=== PATIENT | male | born 1980 | race Caucasian/White ===

== ENCOUNTER 2017-02-08 16:03 | Emergency (ER) | payer MEDICAID ==
[2017-02-08 16:13] VITALS: BP 101/58; PULSE 53; RESP 16; TEMP 97.7; O2SAT 95
--- NOTE | 2017-02-08 16:43 | EDPHY ---
H & P Time Seen by Provider: 02/08/17 16:32 HPI/ROS: CHIEF COMPLAINT: Foot pain HISTORY OF PRESENT ILLNESS: this is a 36-year-old male presenting to the emergency department complaining of left pinky toe pain onset yesterday. patient states he was walking with his dog yesterday twisted his foot started having pain at his left pinky with bruising. reports increased pain with weight-bearing, but is able to ambulate without difficulty. denies any other injury REVIEW OF SYSTEMS: Constitutional: No fever, no chills. Eyes: No discharge. no blurred vision Cardiovascular: No chest pain, no palpitations. Respiratory: No cough, no shortness of breath. Gastrointestinal: No abdominal pain, no vomiting. Musculoskeletal: No back pain. left foot pain Skin: No rashes. Neurological: No headache. Smoking Status: Never smoked Physical Exam: General Appearance: Alert and no distress. Eyes: Pupils equal and round no injection. Respiratory: Chest is nontender, lungs are clear to auscultation. Cardiac: regular rate and rhythm Gastrointestinal: Abdomen is soft and nontender, no masses Musculoskeletal: Neck is supple and nontender. Extremities: Left foot metatarsal tenderness on palpation, no obvious deformity ecchymosis noted. full range of motion positive CMS intact Skin: No rashes or lesions. Constitutional: Initial Vital Signs Temperature (C) 36.5 C 02/08/17 16:10 Heart Rate 53 L 02/08/17 16:10 Respiratory Rate 16 02/08/17 16:10 Blood Pressure 101/58 L 02/08/17 16:10 O2 Sat (%) 95 02/08/17 16:10 O2 Delivery Mode Room Air Allergies/Adverse Reactions: Sulfa (Sulfonamide Antibiotics) Allergy (Verified 02/08/17 16:09) Home Medications: Medication Instructions Recorded NK [No Known Home Meds] 02/08/17 Medical Decision Making - Diagnostics Imaging Results: Imaging Impressions Foot X-Ray 02/08/17 16:14 Impression: Negative left foot radiographs. ED Course/Re-evaluation: discussed the plan of care: x-ray of left foot no acute fracture seen Differential Diagnosis: other differential diagnosis considered but not limited to toe fracture, dislocation, metatarsal fracture Departure - Departure Disposition: Home, Routine, Self-Care Clinical Impression: Toe sprain Qualifiers: Encounter type: initial encounter Qualified Code(s): S93.509A - Unspecified sprain of unspecified toe(s), initial encounter Condition: Good Instructions: Swollen Joint (ED) Additional Instructions: 1. decreased prolonged pressure on left foot 2. ice 15 minutes several times a day as needed for swelling 3. ibuprofen as needed for pain and inflammation Referrals: NONE *PRIMARY CARE P,. [Primary Care Provider] - As per Instructions [facility],. [Clinic] - As per Instructions
== END 2017-02-08 16:55 | disposition home or self-care (01) ==
DX: S93.505A Unspecified sprain of left lesser toe(s), initial encounter (principal); X50.9XXA Other and unspecified overexertion or strenuous movements or postures, initial encounter; Y99.8 Other external cause status; Y93.K1 Activity, walking an animal

== ENCOUNTER 2017-08-02 16:41 | Emergency (ER) | payer MEDICAID ==
[2017-08-02] MEDS ORDERED: LORazepam 2 MG/ML INJ ONE (16:58)
[2017-08-02] MEDS ORDERED: LORazepam 2 MG/ML INJ IVP ONE (17:00)
--- NOTE | 2017-08-02 17:03 | EDPHY ---
H & P - Medical/Surgical History Hx Asthma: No Hx Chronic Respiratory Disease: No Hx Diabetes: No Hx Cardiac Disease: No Hx Renal Disease: No Hx Cirrhosis: No Hx Alcoholism: No Hx HIV/AIDS: No Hx Splenectomy or Spleen Trauma: No Other PMH: denies - Social History Smoking Status: Never smoked HPI/ROS: Chief complaint: "I took mushrooms and now everything is coated in fear." History of present illness: This is a 37-year-old male who presents to the emergency department stating he took mushrooms and now feels like everything " is coated in fear." He has a hard time describing how he is feeling. He states he has taken mushrooms multiple times in the past and has always had a positive reaction. He describes this is very negative. He is wondering if his friend who given the mushrooms gave him something different. He does not believe he has other drugs or alcohol on board. He denies other associated signs or symptoms including no illness or injury. Review of systems: A 10 point review of systems was obtained and other than described above was negative (Lenny Velasquez) - Physical Exam Exam: General Appearance: Alert, nontoxic. Eyes: Pupils equal and round no pallor or injection. ENT, Mouth: Mucous membranes moist. Respiratory: There are no retractions, lungs are clear to auscultation. Cardiovascular: Regular rate and rhythm. Gastrointestinal: Abdomen is soft and non tender, no masses, bowel sounds normal. Neurological: Alert. Cranial nerves 2-12 grossly intact. Strength and sensation intact and symmetrical. Skin: Warm and dry, no rashes. Musculoskeletal: Neck is supple non tender. Extremities are symmetrical, full range of motion. Psychiatric: Patient is alert. The more speak with him the more he appears to be very paranoid. (Lenny Velasquez) Constitutional: Initial Vital Signs Temperature (C) 36.9 C 08/02/17 17:01 Heart Rate 67 08/02/17 17:01 Respiratory Rate 18 08/02/17 17:01 Blood Pressure 142/96 H 08/02/17 17:01 O2 Sat (%) 99 08/02/17 17:01 O2 Delivery Mode Room Air Allergies/Adverse Reactions: Sulfa (Sulfonamide Antibiotics) Allergy (Verified 02/08/17 16:09) Home Medications: Medication Instructions Recorded NK [No Known Home Meds] 02/08/17 Medical Decision Making - Diagnostics EKG Interpretation: 12 lead EKG is interpreted in Trace master View by emergency department physician. (Maggie Burgess) ED Course/Re-evaluation: The patient was evaluated and managed by the physician car rental sales assistant. I have reviewed this chart and I agree with the findings and plan of care as documented , as indicated by my signature. I am the secondary supervising physician. ( Maggie Burgess) Differential Diagnosis: Patient seen under the supervision of my secondary supervising physician Dr. Maggie Burgess. Patient presents to the emergency department having a bad reaction to hallucinogenic mushrooms. He is nontoxic. Physical exam is benign. Vital signs are stable. Blood screen, toxicology screen EKG largely unremarkable. I believe this is a bad reaction to hallucinogenic mushrooms. I believe he is safe for discharge home. He is discharged with his mother and a friend to observe him. Return precautions are given. (Lenny Velasquez) - Data Points Laboratory Results: Laboratory Results 08/02/17 16:50 08/02/17 16:50 08/02/17 08/02/17 08/02/17 16:50 16:50 16:50 WBC 10.21 10^3/uL H 10^3/uL (3.80-9.50) RBC 5.18 10^6/uL 10^6/uL (4.40-6.38) Hgb 16.7 g/dL g/dL (13.7-17.5) Hct 46.6 % % (40.0-51.0) MCV 90.0 fL fL (81.5-99.8) MCH 32.2 pg pg (27.9-34.1) MCHC 35.8 g/dL g/dL (32.4-36.7) RDW 12.1 % % (11.5-15.2) Plt Count 197 10^3/uL 10^3/uL (150-400) MPV 11.7 fL fL (8.7-11.7) Neut % (Auto) 75.3 % H % (39.3-74.2) Lymph % (Auto) 13.1 % L % (15.0-45.0) [place] % (Auto) 8.8 % % (4.5-13.0) Eos % (Auto) 1.6 % % (0.6-7.6) Baso % (Auto) 0.4 % % (0.3-1.7) Nucleat RBC Rel Count 0.0 % % (0.0-0.2) Absolute Neuts (auto) 7.69 10^3/uL H 10^3/uL (1.70-6.50) Absolute Lymphs (auto) 1.34 10^3/uL 10^3/uL (1.00-3.00) Absolute Monos (auto) 0.90 10^3/uL H 10^3/uL (0.30-0.80) Absolute Eos (auto) 0.16 10^3/uL 10^3/uL (0.03-0.40) Absolute Basos (auto) 0.04 10^3/uL 10^3/uL (0.02-0.10) Absolute Nucleated RBC 0.00 10^3/uL 10^3/uL (0-0.01) Immature Gran % 0.8 % % (0.0-1.1) Immature Gran # 0.08 10^3/uL 10^3/uL (0.00-0.10) Sodium 140 mEq/L mEq/L (134-144) Potassium 4.3 mEq/L mEq/L (3.5-5.2) Chloride 100 mEq/L mEq/L (97-110) Carbon Dioxide 26 mEq/l mEq/l (22-31) Anion Gap 14 mEq/L mEq/L (8-16) BUN 20 mg/dL mg/dL (7-23) Creatinine 1.1 mg/dL mg/dL (0.7-1.3) Estimated GFR > 60 Glucose 100 mg/dL mg/dL (70-100) Calcium 9.9 mg/dL mg/dL (8.5-10.4) Urine Opiates Screen NEGATIVE (NEGATIVE) Urine Barbiturates NEGATIVE (NEGATIVE) Ur Phencyclidine Scrn NEGATIVE (NEGATIVE) Ur Amphetamine Screen NEGATIVE (NEGATIVE) U Benzodiazepines Scrn NEGATIVE (NEGATIVE) Urine Cocaine Screen NEGATIVE (NEGATIVE) U Marijuana (THC) Screen NEGATIVE (NEGATIVE) Ethyl Alcohol < 10 mg/dL mg/dL (0-10) Medications Given: Discontinued Medications Lorazepam (Ativan Injection) 0.5 mg IVP EDNOW ONE Stop: 08/02/17 17:01 Last Admin: 08/02/17 17:01 Dose: 0.5 mg Departure - Departure Disposition: Home, Routine, Self-Care Clinical Impression: Polysubstance abuse Condition: Good Instructions: Polysubstance Abuse (ED) Additional Instructions: Follow-up with a primary care doctor for recheck Discontinue the use of illicit drugs including mushrooms If symptoms worsen or new symptoms develop return to the emergency room for recheck Referrals: Patient,NotPresent [Unknown] - As per Instructions [facility],. [Clinic] - As per Instructions
[2017-08-02 17:08] LABS: % IMMATURE GRANULYOCYTES 0.8 % (0.0-1.1); ABSOLUTE IMMATURE GRANULOCYTES 0.08 10^3/uL (0.00-0.10); ADD DIFF? NO; ADD MORPH? NO; ADD SCAN? NO; ATYPICAL LYMPHOCYTE FLAG 0 (0-99); FRAGMENT RBC FLAG 0 (0-99); HEMATOCRIT 46.6 % (40.0-51.0); HEMOGLOBIN 16.7 g/dL (13.7-17.5); LEFT SHIFT FLG 0 (0-99); LIPEMIA HEMOLYSIS FLAG 90 (0-99); MEAN CELL HEMOGLOBIN 32.2 pg (27.9-34.1); MEAN CELL HEMOGLOBIN CONCENTR. 35.8 g/dL (32.4-36.7); MEAN PLATELET VOLUME 11.7 fL (8.7-11.7); PLATELET CLUMPS FLAG 0 (0-99); PLATELET COUNT 197 10^3/uL (150-400); RED BLOOD CELL COUNT 5.18 10^6/uL (4.40-6.38); RED CELL DISTRIBUTION WIDTH 12.1 % (11.5-15.2)
[2017-08-02 17:20] VITALS: TEMP 98.4
[2017-08-02 17:23] LABS: ANION GAP 14 mEq/L (8-16); CALCIUM 9.9 mg/dL (8.5-10.4); CARBON DIOXIDE 26 mEq/l (22-31); CHLORIDE 100 mEq/L (97-110); CREATININE 1.1 mg/dL (0.7-1.3); ETHANOL SERUM < 10 mg/dL (0-10); GLOMERULAR FILTRATION RATE > 60; GLUCOSE 100 mg/dL (70-100); POTASSIUM 4.3 mEq/L (3.5-5.2); SODIUM 140 mEq/L (134-144)
--- NOTE | 2017-08-02 17:28 | CPEKG ---
Heart Rate: 78 RR Interval: 769 P-R Interval: 168 QRSD Interval: 94 QT Interval: 372 QTC Interval: 424 P [place]: 76 QRS [place]: 131 T Wave [place]: 53 EKG Severity - ABNORMAL ECG - EKG Impression: SINUS RHYTHM EKG Impression: PROBABLE LEFT ATRIAL ABNORMALITY EKG Impression: CONSIDER RIGHT VENTRICULAR HYPERTROPHY EKG Impression: CONSIDER LEFT VENTRICULAR HYPERTROPHY EKG Impression: ST ELEV, PROBABLE NORMAL EARLY REPOL PATTERN Electronically Signed By: Maggie Burgess 02-Aug-2017 17:36:03
[2017-08-02 18:07] VITALS: BP 129/79; PULSE 78; RESP 16; O2SAT 94
== END 2017-08-02 18:06 | disposition home or self-care (01) ==
LOC: EDUNIT#
DX: F19.10 Other psychoactive substance abuse, uncomplicated (principal)
CPT/HCPCS: 80305; 96374; G0480; J2060